=== PATIENT | male | born 2005 | race Caucasian/White ===

== ENCOUNTER 2023-09-22 13:49 | Emergency (ER) | payer OTHER, SELFPAY ==
[2023-09-22] VITALS (18 sets, daily range): BP systolic 86–104; BP diastolic 30–72; PULSE 71–100; RESP 16–21; O2SAT 93–98; BMI 22.3
--- NOTE | 2023-09-22 14:09 | ECG_ITS ---
Test Reason : MEDICATION Blood Pressure : / mmHG Vent. Rate : 076 BPM Atrial Rate : 076 BPM P-R Int : 172 ms QRS Dur : 090 ms QT Int : 366 ms P-R-T Axes : 058 073 055 degrees QTc Int : 411 ms Normal sinus rhythm Normal ECG No previous ECGs available Referred By: Kylie Parker Electronically Signed By:JAMIE HERNANDEZ MD
[2023-09-22] MEDS: OLANZapine 10 MG VIAL 5 MG IM ×2 (14:15→15:59)
[2023-09-22] MEDS: LORazepam 2 MG/ML VIAL IM ×2 (14:15→16:47)
[2023-09-22] MEDS: diphenhydrAMINE HCL 50 MG/ML VIAL IM (14:15)
--- NOTE | 2023-09-22 14:28 | PC.NURSE ---
presented from EMS for ?drug/etoh use. upon arrival, patient was agitated and combative - biting at clothing after physical restraints. order for chemical restraint, patient now appears to be resting in room with patient observer at bedside, respirations even and unlabored.
--- NOTE | 2023-09-22 14:31 | ED_ITS ---
HPI - Overdose General Chief Complaint: ETOH/Substance Use Stated Complaint: ETOH,POLICE CUSTODY Time Seen by Provider: 09/22/23 14:08 Source: EMS and police Mode of arrival: EMS History of Present Illness HPI Narrative: 18-year-old male who was [place] in from the [place] by EMS attended by police after he was found mumbling and not making any sense, suspicion for alcohol and drug use, was combative on arrival, patient provides no additional information. Related Data Allergies Allergy/AdvReac Type Severity Reaction Status Date / Time Unable to Assess Allergy Verified 09/22/23 14:09 Review of Systems 2 Review of Systems: Yes Unobtainable due to mental condition PMFSH Past Medical History Source: nursing notes reviewed Physical Exam 2 Vital Signs: Vital Signs: Last Vital Signs Pulse 91 09/22/23 16:00 Resp 17 09/22/23 16:00 BP 102/57 L 09/22/23 16:00 Pulse Ox 97 09/22/23 16:00 O2 Del Method Room Air 09/22/23 16:00 BMI result Body Mass Index 22.3 VITAL SIGNS: Reviewed. GENERAL: Well developed, well nourished, in no acute distress. HEAD: Normocephalic/atraumatic EYES: PERRLA, EOMI EARS: Ext canals without abnormality NOSE: Nares patent bilateral OROPHARYNX: no oral lesions noted, posterior pharynx clear NECK: Supple, no adenopathy LUNGS: Normal breath sounds. No adventitious sounds or accessory muscle use. SpO2<95> CARDIOVASCULAR: Regular rate and rhythm without noted murmurs ABDOMEN: Soft, non-tender, non-distended with bowel sounds. MUSCULOSKELETAL: No tenderness, deformities, or effusions noted on gross inspection. EXTREMITIES: No cyanosis, clubbing or edema. SKIN: Inspection of the skin reveals no rashes NEUROLOGIC: Alert and strength and sensation to light touch were grossly intact x 4. Medications Administered Discontinued Medications Generic Name Dose Route Start Last Admin Trade Name Freq PRN Reason Stop Dose Admin Diphenhydramine HCl 50 mg 09/22/23 14:09 09/22/23 14:15 Diphenhydramine Hcl 50 Mg/Ml Vial IM 09/22/23 14:10 50 mg ONCE ONE Administration Lorazepam 2 mg 09/22/23 14:09 09/22/23 14:15 Lorazepam 2 Mg/Ml Vial IM 09/22/23 14:10 2 mg ONCE ONE Administration Olanzapine 5 mg 09/22/23 14:09 09/22/23 14:15 Olanzapine 10 Mg Vial IM 09/22/23 14:10 5 mg ONCE ONE Administration Olanzapine 5 mg 09/22/23 15:53 09/22/23 15:59 Olanzapine 10 Mg Vial IM 09/22/23 15:54 5 mg ONCE ONE Administration Medical Decision Making Medical Decision Making [facility] Narrative: 1410: This is a 18-year-old male with history and clinical presentation suspicious for polysubstance use, on review of prior visits there is no information noted, not clear whether not patient has history of psychiatric condition. He did require immediate medication restraint and had to be kept in 4 point restraints. 1510: Patient is calm, resting. 1532: Patient is out of restraints, please see nursing documentation for exact timing of when this occurred. Reviewed all investigations and hematologic indices are grossly within normal limits and there are no noted derangements. Chemistry indices are grossly within normal limits without demonstrated ARTURO her electrolytes/liver enzyme derangements. BAL- 189. 1545: Patient had to be placed back in physical restraints. And also require an additional 5 mg of Zyprexa and 10 mg of Geodon. Signed out to ERNESTINE Reveles Differential Diagnosis Differential Diagnoses: The differential diagnosis associated with the presentation includes Please see the discussion above Admission/Observation Consideration of admission/observation: Escalation of care including admission/observation considered Please see the discussion above Lab Data [facility] Lab Attestation statement: I reviewed the patient's lab results. Please see the discussion above 09/22/23 14:50 09/22/23 14:50 Labs: Lab Results 09/22/23 Range/Units 14:50 WBC 7.0 (4.8-10.8) X10*3/uL RBC 4.83 (4.60-5.80) X10*6/uL Hgb 14.6 (14.0-18.0) g/dl Hct 42.7 (42.0-52.0) % MCV 88.4 (80.0-98.0) fL MCH 30.2 (27.0-33.0) pg MCHC 34.2 (31.0-36.0) g/dl RDW 12.3 (11.0-16.0) % Plt Count 283 (160-400) X10*3/uL MPV 8.9 L (9.4-12.4) fL Immature Gran % (Auto) 0.1 (0.0-0.4) % Neut % (Auto) 47.9 (45-73) % Lymph % (Auto) 40.7 H (20-40) % [place] % (Auto) 6.8 (2-11) % Eos % (Auto) 4.1 H (0-4) % Baso % (Auto) 0.4 (0-2) % Lymph # (Auto) 2.9 (1.2-4.9) X10*3/uL [place] # (Auto) 0.5 (0.1-1.2) X10*3/uL Eos # (Auto) 0.3 (0.0-0.4) X10*3/uL Baso # (Auto) 0.0 (0.0-0.2) X10*3/uL Abs Immat Gran (auto) 0.01 (0.00-0.03) X10*3/uL Absolute Neuts (auto) 3.4 (2.0-8.3) x10*3/uL Absolute Nucleated RBC 0.000 (0.0-0.012) X10*3/uL Nucleated RBC % (auto) 0.0 (0.0-0.2) /100WBC Sodium 143 (135-145) mmol/L Potassium 3.8 (3.3-5.1) mmol/L Chloride 109 H (96-108) mmol/L Carbon Dioxide 23 (22-29) mmol/L Anion Gap 15 (12-20) BUN 7 L (9-16) mg/dL Creatinine 0.79 (0.5-1.4) mg/dL Estim Creat Clear Calc 148.7 Estimated GFR > 60 Random Glucose 81 (60-115) mg/dL Calcium 9.5 (8.4-10.2) mg/dL Total Bilirubin 0.3 (0.0-1.0) mg/dL AST 29 (5-37) U/L ALT 9 (0-40) U/L Alkaline Phosphatase 69 (39-117) U/L Total Protein 7.1 (6.5-8.0) g/dL Albumin 4.1 (3.5-5.0) g/dL Ethyl Alcohol 189 mg/dL Independent Interpretation I performed an independent interpretation of an: EKG Interpretation: Normal sinus rhythm, HR-76, no STEMI, CO/QRS/QTC is within normal limits. Critical Care Time Critical Care Time Critical Care Time: Yes Total Critical Care Time: 45 Attestation: I personally attest to this time spent taking care of the patient. Discharge Plan Discharge Clinical Impression: Alcoholic intoxication, Polysubstance use disorder, Overdose Patient Disposition: Still a Patient
[2023-09-22 14:55] LABS: Basophils Percent Auto 0.4 % (0-2); Eosinophils Absolute Auto 0.3 X10*3/uL (0.0-0.4); Eosinophils Percent Auto 4.1 % (0-4); Hematocrit 42.7 % (42.0-52.0); Hemoglobin 14.6 g/dl (14.0-18.0); Imm Gran Abs Auto 0.01 X10*3/uL (0.00-0.03); Imm Gran Pct Auto 0.1 % (0.0-0.4); Lymphocytes Absolute Auto 2.9 X10*3/uL (1.2-4.9); Lymphocytes Percent Auto 40.7 % (20-40); MANUAL DIFF FLAG NO; Mean Corpuscular HGB Conc 34.2 g/dl (31.0-36.0); Mean Corpuscular Hemoglobin 30.2 pg (27.0-33.0); Mean Corpuscular Volume 88.4 fL (80.0-98.0); Mean Platelet Volume 8.9 fL (9.4-12.4); Monocytes Absolute Auto 0.5 X10*3/uL (0.1-1.2); Monocytes Percent Auto 6.8 % (2-11); Neutrophils Absolute Auto 3.4 x10*3/uL (2.0-8.3); Neutrophils Percent Auto 47.9 % (45-73); Platelet Count 283 X10*3/uL (160-400); Red Blood Count 4.83 X10*6/uL (4.60-5.80); Red Cell Distribution Width 12.3 % (11.0-16.0)
--- NOTE | 2023-09-22 15:00 | PC.NURSE ---
Left hand and right leg taken out of restraints, Patient woke up and readjusted himself and went back to sleep.
[2023-09-22 15:09] LABS: Ethanol 189 mg/dL
[2023-09-22 15:11] LABS: Alanine Aminotransferase 9 U/L (0-40); Albumin Level 4.1 g/dL (3.5-5.0); Alkaline Phosphatase 69 U/L (39-117); Anion Gap 15 (12-20); Aspartate Amino Transferase 29 U/L (5-37); Bilirubin Total 0.3 mg/dL (0.0-1.0); Blood Urea Nitrogen 7 mg/dL (9-16); Calcium 9.5 mg/dL (8.4-10.2); Carbon Dioxide 23 mmol/L (22-29); Chloride 109 mmol/L (96-108); Creatinine Clr Calc Pharmacy 148.7; Estimated Glomerular Filt Rate > 60; Glucose Random 81 mg/dL (60-115); Potassium 3.8 mmol/L (3.3-5.1); Sodium 143 mmol/L (135-145); Total Protein 7.1 g/dL (6.5-8.0)
--- NOTE | 2023-09-22 15:21 | PC.NURSE ---
Left leg taken out of restraint, patient remains calm.
[2023-09-22] MEDS: Ziprasidone Mesylate 20 MG VIAL 10 MG IM (16:31)
[2023-09-22] MEDS: Haloperidol Lactate 5 MG/ML VIAL IM (16:47)
--- NOTE | 2023-09-22 17:07 | PC.NURSE ---
1545 Attempted to change patient into hospital attire, patient became combative with staff at this time. Security called and patient placed into restraints. Medicated per MAR. 1615 Patient continues to thrash against restraints unable to obtain BP at this time provider aware. Medication ordered. 1630 Patient continues to be agitated and combative with staff, medicated per MAR at this time, unable to obtain vitals. 1645 Patient continues to be agitated and combative, medicated per MAR, unable to obtain vitals due to patient being combative. 1700 Patient starting to be more calm at this time.
[2023-09-22] MEDS: 0.9 % Sodium Chloride 1,000 ML 999 ML IV ×4 (17:28→19:49)
--- OUTSIDE RECORDS SUMMARY | 2023-09-22 18:02 | XMS_ITS | Continuity of Care Document ---
Author Name Unknown Organization [facility] Address [address] [place] [address]- Care Team Providers Care Resource Engineer Name Role Phone Sarmad VINSON, Elis Primary Care Physician [phone] Encounter [facility] Date(s): 04/19/20 - 05/19/20 [facility] [address] [place] [id number]- Attending Physician: Jaylon Chavez Admitting Physician: AdmtrJaylon Referring Physician: Admtr, Ar8 Allergies, Adverse Reactions, Alerts Substance Reaction Severity Status NKA Active Immunizations Given and Recorded Vaccine Date Status Refusal Reason Hepatitis A Pediatric Vaccine 1 01/30/19 Given influenza virus vaccine, inactivated 12/02/17 Give n influenza virus vaccine, inactivated 08/08/16 Give n influenza virus vaccine, inactivated 07/30/13 Give n influenza virus vaccine, inactivated 08/27/11 Give n influenza virus vaccine, inactivated 07/06/10 Give n Human Papillomavirus Vaccine 10/25/15 Given Human Papillomavirus Vaccine 2 04/15/15 Given Human Papillomavirus Vaccine 04/12/14 Given influenza virus vaccine, live 10/25/15 Given influenza virus vaccine, live 07/22/14 Given tetanus/diphtheria/pertussis, acel(Tdap) 04/12/14 Given Meningococcal Conjugate Vaccine 04/12/14 Given Varicella Virus Vaccine 01/22/08 Given Varicella Virus Vaccine 04/13/04 Given Measles/Mumps/Rubella Virus Vaccine 01/22/08 Given Measles/Mumps/Rubella Virus Vaccine 04/13/04 Given Poliovirus Vaccine, Inactivated 01/22/08 Given Poliovirus Vaccine, Inactivated 02/21/04 Given Poliovirus Vaccine, Inactivated 03 Given Poliovirus Vaccine, Inactivated 03 Given Diphth/Pertussis,Acel/Tetanus (oldterm) 01/22/08 G iven Diphth/Pertussis,Acel/Tetanus (oldterm) 07/20/04 G iven Diphth/Pertussis,Acel/Tetanus (oldterm) 03 G iven Diphth/Pertussis,Acel/Tetanus (oldterm) 03 G iven Diphth/Pertussis,Acel/Tetanus (oldterm) 03 G iven Pneumococcal Conjugate (PCV7) (oldterm) 07/20/04 G iven Pneumococcal Conjugate (PCV7) (oldterm) 03 G iven Pneumococcal Conjugate (PCV7) (oldterm) 03 G iven Pneumococcal Conjugate (PCV7) (oldterm) 03 G iven Haemophilus B Conj Vaccine (oldterm) 04/29/04 Give n Haemophilus B Conj Vaccine (oldterm) 03 Give n Haemophilus B Conj Vaccine (oldterm) 03 Give n Haemophilus B Conj Vaccine (oldterm) 03 Give n Hepatitis B Vaccine (old term) 02/21/04 Given Hepatitis B Vaccine (old term) 03 Given Hepatitis B Vaccine (old term) 03 Given Influenza Inactive (IM) (oldterm) 03 Given 1Result Comment: [facility] [place] [id number] 2Result Comment: Gardasil 9 Medications Adderall XR 30 mg oral capsule, extended release 1 capsule = 30 mg, By Mouth, Daily in AM, Dx: ADHD, # 30 capsule, 0 Refills, Maintenance, 10/27/19 13:48:00 EST, CR Capsule, [id number], 1 capsule By Mouth Daily in AM,x30 days,Instr:Dx: ADHD, 192.5, cm, 01/30/19 8:26:00 EDT, Height, 66.4, kg,... Start Date: 10/27/19 Stop Date: 11/26/19 Status: Ordered clindamycin 1% topical gel 1 application, Topically, 2 times a day, apply a thin film to affected area after washing, # 30 Gm,3 Refills, Maintenance, 04/19/20 12:00:00 EDT, Gel, [id number], 1 application Topically 2 times a day,Instr:apply a thin film to affec... Start Date: 04/19/20 Status: Ordered triamcinolone 0.1% topical ointment See Instructions, APPLY TO AFFECTED AREA TWICE A DAY FOR 14 DAYS, # 60 Gm, 2 Refills, Maintenance, 04/18/20 16:35:00 EDT, [facility] #[id number], 30, APPLY TO AFFECTED AREA TWICE A DAY FOR 14 DAYS, 192.5, cm, 01/30/19 8:26:00 EDT, Height, 66.4, k... Start Date: 04/18/20 Status: Ordered Problem List Condition Effective Dates Status Health Status Inform ant ADHD - Attention deficit dis order with hyperactivity(Confirmed) 1 Active Cognitive impairment(Confirmed) Active 1ADD, not ADHD Social History Social History Type Response Smoking Status Never smoker; Tobacc o user in household: No entered on: 12/02/17 Sex
--- OUTSIDE RECORDS SUMMARY | 2023-09-22 18:02 | XMS_ITS | Continuity of Care Document ---
Author Name Unknown Organization [facility] Address [address] [place] [address]- Care Team Providers Care Machine Repair Person Name Role Phone Sarmad VINSON, Elis Primary Care Physician [phone] Encounter [facility] Date(s): 01/10/21 - 02/09/21 [facility] [address] [place] [phone]- Allergies, Adverse Reactions, Alerts Substance Reaction Severity [...] Inactive (IM) (oldterm) 03 Given 1Result Comment: [facility] [id number] 2Result Comment: Gardasil 9 Medications Adderall XR 30 mg oral capsule, extended release 1 capsule = 30 mg, By Mouth, Daily in AM, Dx: ADHD, # 30 capsule, 0 Refills, Maintenance, 01/10/21 13:08:00 EDT, CR Capsule, [facility] #[id number], 1 capsule By Mouth Daily in AM,x30 days,Instr:Dx: ADHD, 185, cm, 06/27/20 8:22:00 EDT, Height, 80... Start Date: 01/10/21 Stop Date: 02/09/21 Status: Ordered clindamycin 1% topical gel 1 application, Topically, 2 times a day, apply a thin film to affected area after washing, # 30 Gm,3 Refills, Maintenance, 04/19/20 12:00:00 EDT, Gel, [facility] #[id number], 1 application Topically 2 times a day,Instr:apply a thin film to affec... Start Date: 04/19/20 Status: Ordered triamcinolone 0.1% topical ointment See Instructions, APPLY TO AFFECTED AREA TWICE A DAY FOR 14 DAYS, # 60 Gm, 2 Refills, Acute, [id number], 30, APPLY TO AFFECTED AREA TWICE A DAY FOR 14 DAYS, 185, cm, 04/19/20 11:07:00 EDT, Height, 80.9, kg, 04/19/20 11:07:00 EDT, Dry Weight Start Date: 06/03/20 Status: Ordered Problem List Condition Effective Dates Status Health Status Inform ant ADHD - Attention deficit dis order with hyperactivity(Confirmed) 1 Active Cognitive impairment(Confirmed) Active 1ADD, not ADHD Social History Social History Type Response Smoking Status Never smoker; Tobacc o user in household: No entered on: 12/02/17 Sex
--- OUTSIDE RECORDS SUMMARY | 2023-09-22 18:02 | XMS_ITS | Continuity of Care Document ---
Author Name Unknown Organization [facility] Address [address] [place] [address]- Care Team Providers Care Professor Of Food Biochemistry Name Role Phone Elis Bañuelos MD Primary Care Physician [phone] Encounter [facility] Date(s): 05/31/23 - 06/01/[address] [address]- Encounter Diagnosis Alcohol abuse(Final) - 06/01/23 Discharge Disposition: A-D/C Home Attending Physician: Liz Betancourt DO Admitting Physician: Liz Betancourt DO Referring Physician: Not on Staff, Referring MD Allergies, Adverse Reactions, Alerts No Known Allergies Immunizations Given and Recorded Vaccine Date Status Refusal Reason tetanus/diphtheria/pertussis, acel(Tdap) 03/22/23 Given tetanus/diphtheria/pertussis, acel(Tdap) 04/12/14 Given Hepatitis A Pediatric Vaccine 1 01/30/19 Given [...] Given influenza virus vaccine, live 07/22/14 Given Meningococcal Conjugate Vaccine 04/12/14 Given Varicella [...] Inactive (IM) (oldterm) 03 Given 1Result Comment: [facility] [id number] 2Result Comment: Gardasil 9 Medications Adderall XR 30 mg oral capsule, extended release 1 capsule = 30 mg, By Mouth, Daily in AM, Dx: ADHD, # 30 capsule, 0 Refills, Maintenance, 01/10/21 13:08:00 EDT, CR Capsule, [facility] #[id number], 1 capsule By Mouth Daily in AM,x30 days,Instr:Dx: ADHD, 185, cm, 06/27/20 8:22:00 EDT, Height, 80... Start Date: 01/10/21 Stop Date: 02/09/21 Status: Ordered clindamycin 1% topical gel 1 application, Topically, 2 times a day, apply a thin film to affected area after washing, # 30 Gm,3 Refills, Maintenance, 04/19/20 12:00:00 EDT, Gel, [facility] #[id number], 1 application Topically 2 times a day,Instr:apply a thin film to affec... Start Date: 04/19/20 Status: Ordered ondansetron 4 mg oral tablet, disintegrating 1 tablet = 4 mg, By Mouth, Every 8 hours, PRN as needed for nausea/vomiting, # 10 tablet, 0 Refills, Maintenance, 01/01/23 17:17:00 EDT, DIS Tablet, [facility] #[id number], Partial fill upon patient request if the prescription is for a schedule II opioid... Start Date: 01/01/23 Status: Ordered triamcinolone 0.1% topical ointment See Instructions, APPLY TO AFFECTED AREA TWICE A DAY FOR 14 DAYS, # 60 Gm, 2 Refills, Acute, [id number], 30, APPLY TO AFFECTED AREA TWICE A DAY FOR 14 DAYS, 185, cm, 04/19/20 11:07:00 EDT, Height, 80.9, kg, 04/19/20 11:07:00 EDT, Dry Weight Start Date: 06/03/20 Status: Ordered Problem List Condition Confirmation Course Effective Dates Status H ealth Status Informant ADHD - Attention deficit disorder with hyperactivity 1 Confirmed Active Cognitive impairment Confirmed Active 1ADD, not ADHD Results Radiology Reports * Exam Date Time Procedure Performing Provider Status 05/31/23 10:[address] Head/Brain W/O Contrast Pipo Cage; Auth (Verified) Notes: (CT Head/Brain W/O Contrast) Reason For Exam: Trauma RESULT: CT Head/Brain W/O Contrast CT Head/Brain W/O Contrast INDICATION: Hx of Present Illness: Drank 1 pint of vodka, requesting to talk to someone about detox- alert and oriented but remains to appear under the influence; Reason: Trauma; Clinical Question(s): Subarachnoid Hemorrhage; Order Comment: TECHNIQUE: Noncontrast head CT using axial technique and reconstructed in axial and coronal planes.Iterative reconstruction techniques are used to optimize dose and image quality. CTDIvol Head: 47.50 mGy, DLP Head: 773 mGy*cm. COMPARISON: 04/02/2023. FINDINGS: Agate Setter view findings, lines and tubes: None. BRAIN AND EXTRA-AXIAL SPACES: No parenchymal hemorrhage, midline shift, or mass effect. Hernandez-white matter differentiation is wellpreserved. No acute infarct. Ventricles, sulci, and basilar cisterns are normal. No white matter lesions. No subarachnoid hemorrhage. No subdural or epidural collection. CALVARIUM, SKULL BASE, AND SOFT TISSUES: No fractures or suspicious bony lesions. The paranasal sinuses and mastoid air cells are clear. Visualized orbits and globes are intact. The extracranial soft tissues are unremarkable. Small amount of cerumen in right external auditory canal. IMPRESSION: No acute intracranial pathology. WSN: [id number] Ordering Physician: Oli Albright Dictated By: Brown Yoo MD Dictated Date/Time: 05/31/23 10:58 p Reviewed By: Brown Yoo MD Signed By: Brown Yoo MD Signed Date/Time: 05/31/23 10:58 pm Transcribed By: ALBA Transcribed Date/Time: 05/31/23 10:55 pm Vital Signs Most recent to oldest [Reference Range]: 1 2 Oxygen Saturation [94-100 %] 98 % (06/01/23 1:52 AM) 98 % (05/31/23 7:51 PM) Pulse Rate [55-90 bpm] 81 bpm (06/01/23 1:52 AM) 84 bpm (05/31/23 7:51 PM) Blood Pressure [90-138/55-84 mm Hg] 105/ 80mm Hg (06/01/23 1:52 AM) 133/84mm Hg (05/31/23 7:51 PM) Respiratory Rate [16-30 br/min] 16 br/mi n (06/01/23 1:52 AM) 18 br/min (05/31/23 7:51 PM) Temperature [96.8-100.4 DegF] 98.1 DegF (05/31/23 7:51 PM) Mode of Delivery (Oxygen) Room air (06/01/23 1:52 AM) Room air (05/31/23 7:51 PM) Temperature Route Oral (05/31/23 7:51 PM) Social History Social History Type Response Smoking Status Never smoker; Tobacc o user in household: No entered on: 12/02/17 Sex Note * Liz Betancourt DO: PERFORM, SIGN, VERIFY Event Display: Patient Education Handout Authored Date: [id number] Patient Care team information Care Team Personnel Name: Lara Fu MD Position: Reference Physician Member Role: Lifetime Consulting Physician Address: Address: [address] [place] [address]- [place] Name: Elis Bañuelos MD Position: [facility] Physician - Primary Care Member Role: PCP Address: Address: [address] [place] [address] [place] [address]- [place] Name: *[facility], ED Attending Position: [facility] ED Attendings Patient Name: Connie Osborne Position: [facility] ED TA [facility] Name: Jorge Luis RN, Berto Position: [facility] ED RN W/OE and Tasks Member Role: Patient Care Provider Name: Liz Betancourt DO Position: [facility] ED Medicine MD Member Role: Admitting Physician Address: Address: [address] [place] [address]- Care Team Related Persons Name: CHASIDY GOLDEN Address: home [address] [place] [address] Name: EDDIE ROCHA Address: home [address] [place] [address]
--- OUTSIDE RECORDS SUMMARY | 2023-09-22 18:02 | XMS_ITS | Continuity of Care Document ---
Author Name Unknown Organization [facility] Address [address] [place] [id number]- Care Team Providers Care Racking Machine Operator Name Role Phone Not on Staff, PCP Primary Care Physician Unavail able Encounter [facility] Date(s): 08/07/23 - 08/07/[address] [address]- Encounter Diagnosis Knee pain(Final) - 08/07/23 Discharge Disposition: A-D/C Home Attending Physician: Dodie Basurto DO Admitting Physician: Dodie Basurto DO Referring Physician: Not on Staff, Referring [...] Inactive (IM) (oldterm) 03 Given 1Result Comment: [facility] [id number] 2Result Comment: Gardasil 9 Medications Adderall XR 30 mg oral capsule, extended release 1 capsule = 30 mg, By Mouth, Daily in AM, Dx: ADHD, # 30 capsule, 0 Refills, Maintenance, 01/10/21 13:08:00 EDT, CR Capsule, [facility] #[id number], 1 capsule By Mouth Daily in AM,x30 days,Instr:Dx: ADHD, 185, cm, 06/27/20 8:22:00 EDT, Height, 80... Start Date: 01/10/21 Stop Date: 02/09/21 Status: Ordered clindamycin 1% topical gel 1 application, Topically, 2 times a day, apply a thin film to affected area after washing, # 30 Gm,3 Refills, Maintenance, 04/19/20 12:00:00 EDT, Gel, [facility][id number], 1 application Topically 2 times a day,Instr:apply a thin film to affec... Start Date: 04/19/20 Status: Ordered ondansetron 4 mg oral tablet, disintegrating 1 tablet = 4 mg, By Mouth, Every 8 hours, PRN as needed for nausea/vomiting, # 10 tablet, 0 Refills, Maintenance, 01/01/23 17:17:00 EDT, DIS Tablet, [id number], Partial fill upon patient request if the prescription is for a schedule II opioid... Start Date: 01/01/23 Status: Ordered triamcinolone 0.1% topical ointment See Instructions, APPLY TO AFFECTED AREA TWICE A DAY FOR 14 DAYS, # 60 Gm, 2 Refills, Acute, [facility], 30, APPLY TO AFFECTED AREA TWICE A [...] Exam Date Time Procedure Performing Provider Status 08/07/23 10:08 PM Knee 1 or 2 Views Right Leah Isabel; Sloane (Verified) Notes: (Knee 1 or 2 Views Right) Reason For Exam: with Pain;Trauma RESULT: Knee 1 or 2 Views Right Knee 1 or 2 Views Right CLINICAL INDICATION: Hx of Present Illness: ETOH; Reason: Trauma; with Pain; Clinical Question(s): Fracture COMPARISONS: None TECHNIQUE: AP and lateral views of the right knee were obtained. FINDINGS: Femoral-tibial joint space and alignment are normal. No fracture or dislocation. No joint effusion. The patella is normally positioned. IMPRESSION: No fracture or dislocation. WSN: [id number] Ordering Physician: Dodie Basurto Dictated By: Terry Thomas MD Dictated Date/Time: 08/07/23 10:11 p Reviewed By: Terry Thomas MD Signed By: Terry Thomas MD Signed Date/Time: 08/07/23 10:11 pm Transcribed By: ALBA Transcribed Date/Time: 08/07/23 10:10 pm Vital Signs Most recent to oldest [Reference Range]: 1 2 Oxygen Saturation [94-100 %] 99 % (08/07/23 9:43 PM) 98 % (08/07/23 1:14 PM) Pulse Rate [55-90 bpm] 97 bpm *H* (08/07/23 9:43 PM) 95 bpm *H* (08/07/23 1:14 PM) Blood Pressure [90-138/55-84 mm Hg] 110/ 63mm Hg (08/07/23 9:43 PM) 128/67mm Hg (08/07/23 1:14 PM) Respiratory Rate [16-30 br/min] 18 br/mi n (08/07/23 9:43 PM) 18 br/min (08/07/23 1:14 PM) Temperature [96.8-100.4 DegF] 98.5 DegF (08/07/23 9:43 PM) 95 DegF *L* (08/07/23 1:14 PM) Mode of Delivery (Oxygen) Room air (08/07/23 9:43 PM) Room air (08/07/23 1:14 PM) Blood pressure sites Arm, right (08/07/23 9:43 PM) Arm, right (08/07/23 1:14 PM) Temperature Route Oral (08/07/23 9:43 PM) Social History Social History Type Response Smoking Status Never smoker; Tobacc o user in household: No entered on: 12/02/17 Sex Note * Dodie Basurto DO: PERFORM Event Display: Patient Education Leaflets Authored Date: [id number] Alcohol Intoxication ?? [id number] Alcohol Intoxication Alcohol intoxication is very serious. It occurs when you drink alcohol faster than your liver can break it down. Severe intoxication is a medical emergency. It's also called alcohol overdose or alcohol poisoning. It can lead to . Here are some bashir facts: ??? It can take 10 minutes or more??to start??to??feel the effects of a drink. So it's easy to drink more than you planned. Binge drinking can lead to an alcohol overdose. Binge drinking is having: o5 or more drinks over a short time for men o 4 or more drinks over a short time for women ??? One drink may be more than 1 serving of alcohol. In some cases, a drink can be 2 to 4 servings. This depends on the type of drink. ??? It takes about 1 hour for your body to break down 1 serving of alcohol. If you have more than 1 drink, it can take a few hours or more. ??? People with alcohol abuse disorders are more likely to get alcohol poisoning. But it can happen to anyone who drinks too much alcohol. Even a first-time drinker is at risk. ??? Many things affect how drinks will affect you. These include: o If you've eaten o How fast you drink o Your weight o How much you normally drink (or not)o Medicines you are taking o If you have a chronic disease o If you are male or female o How old you are Symptoms of alcohol intoxication Mild intoxication ??? Feel more relaxed, less tense ??? Slightly slurred speech ??? Sleepiness ??? Poor motor skills Moderate intoxication ??? Changing behavior, aggression, depression ??? Poor judgment ??? Confusion ??? Trouble focusing ??? Poor balance and coordination ??? Worsening slurred speech Severe intoxication ??? Vomiting ??? Seizures ??? Fainting or passing out (unconscious) ??? Cold, clammy skin ??? Slow or irregular breathing ??? Low body temperature (hypothermia) ??? Coma ?? Health effects Alcohol causes health problems.??This can happen after only drinking a little. There is no set number of drinks or amount of alcohol that's too much.??How much you drink at one time affects your health. And so does drinking often. Alcohol affects your whole body in these ways: ??? Brain.??Alcohol can harm parts of the brain that affect your balance, memory, thinking, and feelings. It can cause memory loss, blackouts, depression, agitation, sleep cycle changes, and seizures. These changes may or may not go away. ??? Heart and vascular system.??Alcohol can damage heart muscle. This can cause the heart muscle to weaken and stretch (cardiomyopathy). This can lead to: o Trouble breathing o Irregular heartbeat o Atrial fibrillation o Leg swelling o Heart failure Alcohol also makes the blood vessels stiffen. This causes high blood pressure. All of these problems raise your risk for heart attacks or strokes. ??? Liver.??Alcohol causes fat to build up in the liver. This affects how the liver works. And it raises the risk for hepatitis. This condition leads to belly pain, appetite loss, yellow skin and eyes (jaundice), and bleeding problems. It also leads to harmful changes in the liver. These include??liver fibrosis and cirrhosis. This can affect your ability to fight off infections. These liver changes stop it from removing toxins in your blood. This can cause a brain disease called encephalopathy. ??? Pancreas.??Alcohol can cause inflammation of the pancreas (pancreatitis). It can lead to belly pain, fever, and diabetes. ??? Immune system.??Alcohol weakens your immune system. This makes it harder to fight off infections and colds. You'll also have a higherrisk of some infections. ??? Cancer risk.??Alcohol raises your risk of some types of cancer. They include cancer of the: o Mouth o Esophagus o Pharynx o Larynx o Liver o Breast ? Sexual function.??Alcohol abuse can also lead to sexual problems. There is no safe level of alcohol use for people who are or thinking of getting . Alcohol use in may cause lifelong harm to the baby. So alcohol should be avoided. It can also cause a group of defects called alcohol spectrum disorder. These defects can include physical problems. And also behavior and learning problems. ?? Home care for alcohol intoxication Follow these tips to care for yourself at home: ??? Don't drink any more alcohol. ??? Don't drive??until all effects of the alcohol have worn off. ??? Don't use machinery that can cause injuries. ??? Get lots of rest over the next few days. ??? Drink plenty of water and other drinks that don't have alcohol. ??? Try to eat regular meals. If you have been drinking a lot every day, you may have alcohol withdrawal. Symptoms often last 3 to 4 days. They may include: ??? Nervousness ??? Shakiness ??? Nausea ??? Sweating ??? Sleeplessness They may also include severe, life-threatening symptoms. These are known as delirium tremens (DTs).DTs typically begin between 48 and 96 hours after the last drink and last 1 to 5 days. They include: ??? Seizures ??? Confusion ??? Seeing or hearing things that are not there (hallucinations) Alcohol withdrawal can cause . Call your healthcare provider before you stop drinking. This isespecially important if you've had DTs during past alcohol withdrawals. They may be able to help you with medicine. They can also refer you to an inpatient detox program. Or stay with family or friends who know when to call for medical help and can support you. If you have severe symptoms, call your provider or call 911 for help (see below). ?? Follow-up care These groups can help you and your loved one: ??? Alcoholics Anonymous (A.A.). Gives support through a self-help fellowship. ?? Find A.A. meetings near you at www.aa.org. ??? Al-Anon. ?? Gives support to families at www.al-anon.org . Or call 405-275-1095. ??? SMART Recovery ( Self- Management and Recovery Training). A nationwide abstinence-oriented support group for people with addictive issues. This free program is focused on motivation to change, urge control, and living a balanced life. For more information and meetings near you, go to www.Un-Lease.com.org/ ??? Substance Abuse and Mental Health Services Administration (SAMHSA) Treatment Steam Shovel Oiler. Free information on treatment resources in your area at https://findtreatment.gov/. Or call 067-718-4158. Call 911 Call 911 if any of these occur: ??? Trouble breathing or slow irregular breathing ??? Chest pain ??? Sudden weakness on 1 side of your body or sudden trouble speaking ??? Heavy bleeding or vomiting blood ??? Very sleepy or having trouble waking up ??? Fainting ??? Fast heart rate ??? Seizure ?? When to get medical advice Call your healthcare provider right away if any of these occur: ??? Severe shakiness? Fever of100.4??F (38??C) or higher, or as advised by your provider ??? Confusion or hallucinations ??? Painin your upper belly that gets worse ??? Repeated vomiting ?? Last Reviewed Date: 2021 ?? [id number] [employer]. All rights reserved. This information is not intended as a substitute for professional medical care. Always follow your healthcare professional's instructions. ?? * Dodie Basurto DO: PERFORM Event Display: Patient Education Leaflets Authored Date: Knee Sprain ?? [id number] Knee Sprain A sprain is an injury to the ligaments or capsule that holds a joint together. There are no broken bones. Most sprains take 3 to 6 weeks to heal. If it's a severe sprain where the ligament is completely torn, it can take months to recover. Most knee sprains are treated with a splint, knee immobilizer brace, or elastic wrap for support. Severe sprains may rarely require surgery. Home care ??? Stay off the injured leg as much as possible until you can walk on it without pain. If you have a lot of pain with walking, crutches or a walker may be prescribed. (These can be rented or purchased at many pharmacies and surgical or orthopedic supply stores). Follow your healthcare provider's advice about when to begin putting weight on that leg. ??? Keep your leg raised (elevated) to reduce pain and swelling. When sleeping, place a pillow under the injured leg. When sitting, support the injured leg so it's above heart level. This is very important during the first 48 hours. ???Apply an ice pack over the injured area for 15 to 20 minutes every??2 to 3 ??hours. You should do this for??the first??24 to 48 hours.??To make an ice pack, put ice cubes in a plastic bag that seals at the top. Wrap the bag in a thin towel. Continue to use ice packs to ease pain and swelling as needed. As the ice melts, be careful to avoid getting your wrap, splint, or cast wet. After 48 to 72 hours or as directed by your healthcare provider, apply heat??(warm shower or??warm bath)??for 15 to 20 minutes several times a day, or alternate ice and heat.??You can place the ice pack directly over the splint. If you have to wear a lagd-gvy-ucsd??knee brace, you can open it to apply the ice pack, or heat, directly to the knee. Never put ice directly on the skin. Always wrap the ice in a towel orother type of cloth. ??? You may use??ipzg-mmz-kapymhk pain medicine??to control pain, unless another pain medicine was prescribed. If you have chronic liver or kidney disease, ever had a stomach ulcer or gastrointestinal bleeding, or take a blood thinner, talk with your healthcare provider before??using these medicines. ??? If you were given a splint, keep it completely dry at all times. Bathe with your splint out of the water, protected with??2 large plastic bags, sealed with rubber bands or tape at the top end. If a fiberglass splint gets wet, you can dry it with a hairspring staker set to cool. If you have a??sjwh-afq-syfn??knee brace, you can remove this to bathe, unless told otherwise. ?? Follow-up care Follow up with your doctor, or as advised. Any X-rays you had today don???t show any broken bones, breaks, or fractures. Sometimes fractures don???t show up on the first X-ray. Bruises and sprains can sometimes hurt as much as a fracture. These injuries can take time to heal completely. If your symptoms don???t improve or they get worse, talk with your doctor. You may need a repeat X- ray.??If X-rays were taken, you will be told of any new findings that may affect your care. ?? Call 911 Call 911 if you have: ?Shortness of breath ?Chest pain ?? When to get medical advice Call your healthcare provider right away??if any of these occur: ??? The??splint??or knee immobilizer??brace??becomes wet or soft ??? The fiberglass cast or splint stays wet for more than 24 hours ??? Pain or swelling get worse ??? The injured leg??or??toes become cold, blue, numb, or tingly ?? Last Reviewed Date: 2021 ?? [id number] [employer]. All rights reserved. This information is not intended as a substitute for professional medical care. Always follow your healthcare professional's instructions. ?? Patient Care team information Care Team Personnel Name: Not on Staff, PCP Position: [facility] Physician (General Medicine) Member Role: PCP Name: Nickie VINSON, Lara Position: Reference Physician Member Role: Lifetime Consulting Physician Address: Address: [address] [place] [address]- Name: *[facility], ED Attending Position: [facility] ED Attendings Patient Name: Sb Jackelin FUENTESsea Position: [facility] ED Medicine MD Member Role: Admitting Physician Address: Address: [address] [place] [address] [place] [address]- Name: Farzana Abreu Position: [facility] [place] [facility] [place]: Sourav Casillas RN Position: [facility] ED RN W/OE and Tasks Member Role: Patient Care Provider Care Team Related Persons Name: CHASIDY GOLDEN Address: home [address] [place] [address] Name: EDDIE ROCHA Address: home [address] [place] [address]
--- OUTSIDE RECORDS SUMMARY | 2023-09-22 18:02 | XMS_ITS | Continuity of Care Document ---
Author Name Unknown Organization [facility] ter Address [address] [place] [address]- Care Team Providers Care Fourdrinier Wire Weaver Name Role Phone Not on Staff, PCP Primary Care Physician Unavail able Encounter [facility] Date(s): 04/02/23 - 04/03/[address] [address]- Encounter Diagnosis Closed head injury(Final) - 04/03/23 Discharge Disposition: A-D/C Home Attending Physician: Carson Reyes MD Admitting Physician: Carson Reyes MD Referring Physician: Not on Staff, Referring MD [...] Inactive (IM) (oldterm) 03 Given 1Result Comment: [facility] [id number] 2Result Comment: Gardasil 9 Medications Adderall XR 30 mg oral capsule, extended release 1 capsule = 30 mg, By Mouth, Daily in AM, Dx: ADHD, # 30 capsule, 0 Refills, Maintenance, 01/10/21 13:08:00 EDT, CR Capsule, [facility] #03704, 1 capsule By Mouth Daily in AM,x30 days,Instr:Dx: ADHD, 185, cm, 06/27/20 8:22:00 EDT, Height, 80... Start Date: 01/10/21 Stop Date: 02/09/21 Status: Ordered clindamycin 1% topical gel 1 application, Topically, 2 times a day, apply a thin film to affected area after washing, # 30 Gm,3 Refills, Maintenance, 04/19/20 12:00:00 EDT, [facility] #37627, 1 application Topically 2 times a day,Instr:apply a thin film to affec... Start Date: 04/19/20 Status: Ordered ondansetron 4 mg oral tablet, disintegrating 1 tablet = 4 mg, By Mouth, Every 8 hours, PRN as needed for nausea/vomiting, # 10 tablet, 0 Refills, Maintenance, 01/01/23 17:17:00 EDT, DIS Tablet, [facility] #[id number], Partial fill upon patient request if the prescription is for a schedule II opioid... Start Date: 01/01/23 Status: Ordered triamcinolone 0.1% topical ointment See Instructions, APPLY TO AFFECTED AREA TWICE A DAY FOR 14 DAYS, # 60 Gm, 2 Refills, Acute, [facility], 30, APPLY TO AFFECTED AREA TWICE A [...] Exam Date Time Procedure Performing Provider Status 04/02/23 6:[address] Head/Brain W/O Contrast Estephanie Cage ; Sloane (Verified) Notes: (CT Head/Brain W/O Contrast) Reason For Exam: Trauma RESULT: CT Head/Brain W/O Contrast CT Head/Brain W/O Contrast INDICATION: Hx of Present Illness: Pt. [facility] assisted[facility] because pt. was slumped over. Pt. has Hx of OD. Pt. denies any drug use endorses alcohol use. Endorses drinking pint of liquor. Calm and cooperative. Denies SI HI.; Reason: Trauma; Clinical Question(s): Subarachnoid Hemorrhage; Order Comment: TECHNIQUE: Noncontrast head CT using axial technique and reconstructed in axial and coronal planes.Iterative reconstruction techniques are used to optimize dose and image quality. CTDIvol Head: 45.70 mGy, DLP Head: 1933 mGy*cm. COMPARISON: None. FINDINGS: Tool Grinder Operator External view findings, lines and tubes: None. BRAIN AND EXTRA-AXIAL SPACES: Image quality degraded by patient motion artifact. No parenchymal hemorrhage, midline shift, or mass effect. Hernandez-white matter differentiation is wellpreserved. No acute infarct. Negative insular ribbon and hyperdense vessel signs. Ventricles, sulci, and basilar cisterns are normal. No white matter lesions. No subarachnoid hemorrhage. No subdural or epidural collection. CALVARIUM, SKULL BASE, AND SOFT TISSUES: No fractures or suspicious bony lesions. The paranasal sinuses and mastoid air cells are clear. Visualized orbits and globes are intact. The extracranial soft tissues are unremarkable. IMPRESSION: No acute intracranial pathology. WSN: [id number] Ordering Physician: Laurel Wiseman Dictated By: Terry Thomas MD Dictated Date/Time: 04/02/23 6:28 pm Reviewed By: Terry Thomas MD Signed By: Terry Thomas MD Signed Date/Time: 04/02/23 6:28 pm Transcribed By: ALBA Transcribed Date/Time: 04/02/23 6:17 pm Vital Signs Most recent to oldest [Reference Range]: 1 2 3 Oxygen Saturation [94-100 %] 100 % (04/03/23 10:55 AM) 97 % (04/03/23 8:01 AM) 99 % (04/02/23 5:09 PM) Pulse Rate [55-90 bpm] 74 bpm (04/03/23 10:55 AM) 73 bpm (04/03/23 8:01 AM) 61 bpm (04/02/23 5:09 PM) Blood Pressure [90-138/55-84 mm Hg] 110/63mm Hg (04/03/23 10:55 AM) 121/56mm Hg (04/03/23 8:01 AM) 107/54mm Hg (04/02/23 5:09 PM) Respiratory Rate [16-30 br/min] 18 br/min (04/03/23 10:55 AM) 18 br/min (04/03/23 8:01 AM) 14 br/min *L* (04/02/23 5:09 PM) Temperature [96.8-100.4 DegF] 97.8 DegF (04/03/23 10:55 AM) 98.6 DegF (04/03/23 8:01 AM) 98.1 DegF (04/02/23 1:37 PM) Mode of Delivery (Oxygen) Room air (04/03/23 10:55 AM) Room air (04/03/23 8:01 AM) Room air (04/02/23 5:09 PM) Blood pressure sites Arm, right (04/03/23 8:01 AM) Arm, right (04/02/23 5:09 PM) Arm, right (04/02/23 1:37 PM) Temperature Route Oral (04/03/23 10:55 AM) Oral (04/03/23 8:01 AM) Oral (04/02/23 1:37 PM) Social History Social History Type Response Smoking Status Never smoker; Tobacc o user in household: No entered on: 12/02/17 Sex Patient Care team information Care Team Personnel Name: Not on Staff, PCP Position: [facility] Physician (General Medicine) Member Role: PCP Name: Nickie VINSON, Lara Position: Reference Physician Member Role: Lifetime Consulting Physician Address: Address: [address] [place] [address]- Name: *[facility], ED Attending Position: [facility] ED Attendings Patient Name: Rachael Rosen RN Position: [facility] ED RN W/OE and Tasks Member Role: Patient Care Provider Name: Eric VINSON, Carson Zaragoza Position: [facility] Resident Member Role: Admitting Physician Address: Address: [address] [place] [address] [place] [address]- Care Team Related Persons Name: GOLDENRUIRA Address: home [address] [place] [address] Name: EDDIE ROCHA Address: home [address] [place] [address]
--- OUTSIDE RECORDS SUMMARY | 2023-09-22 18:02 | XMS_ITS | Continuity of Care Document ---
Author Name Unknown Organization [facility] Address [address] [place] [address]- Care Team Providers Care Mineral Technologist Name Role Phone Not on Staff, PCP Primary Care Physician Unavail able [facility] Date[facility]): 09/18/23 - 09/19/[address] [address]- Encounter Diagnosis Altered mental status(Final) - 09/18/23 Discharge Disposition: A-D/C Home Attending Physician: Melissa Leyva MD Admitting Physician: Melissa Leyva MD Referring Physician: Not on Staff, Referring [...] Inactive (IM) (oldterm) 03 Given 1Result Comment: [facility] [id number] 2Result Comment: Gardasil 9 Medications Adderall XR 30 mg oral capsule, extended release 1 capsule = 30 mg, By Mouth, Daily in AM, Dx: ADHD, # 30 capsule, 0 Refills, Maintenance, 01/10/21 13:08:00 EDT, CR Capsule, [facility] #[id number], 1 capsule By Mouth Daily in AM,x30 days,Instr:Dx: ADHD, 185, cm, 06/27/20 8:22:00 EDT, Height, 80... Start Date: 01/10/21 Stop Date: 02/09/21 Status: Ordered clindamycin 1% topical gel 1 application, Topically, 2 times a day, apply a thin film to affected area after washing, # 30 Gm,3 Refills, Maintenance, 04/19/20 12:00:00 EDT, Gel, [facility] #[id number], 1 application Topically 2 times a day,Instr:apply a thin film to affec... Start Date: 04/19/20 Status: Ordered ibuprofen 200 mg oral tablet 400 mg, 2, tablet, By Mouth, Every 4 hours, PRN, # 120 tablet, Refills 0, Tot. Refills 0, Acute 09/24/23 0:00:00 EST, for pain, 09/19/23 1:10:00 EST, Route to Pharmacy Electronically, [facility]/pharmacy #[id number], Partial fill upon patient request if the prescr... Start Date: 09/19/23 Stop Date: 09/24/23 Status: Ordered ondansetron 4 mg oral tablet, [...] 60 Gm, 2 Refills, Acute, [facility], 30, APPLY TO AFFECTED AREA TWICE A DAY FOR 14 DAYS, 185, cm, 04/19/20 11:07:00 EDT, Height, 80.9, kg, 04/19/20 11:07:00 EDT, Dry Weight Start Date: 06/03/20 Status: Ordered Tylenol 325 mg oral capsule 2 capsule = 650 mg, By Mouth, Every 4 hours, PRN as needed for fever, # 20 capsule, 0 Refills, Acute 09/24/23 0:00:00 EST, 09/19/23 1:10:00 EST, Capsule, [facility]/pharmacy #[id number], Partial fill upon patientrequest if the prescription is for a schedule II op... Start Date: 09/19/23 Stop Date: 09/24/23 Status: Ordered Problem List Condition Confirmation Course Effective Dates Status H ealth Status Informant ADHD - Attention deficit disorder with hyperactivity 1 Confirmed Active Cognitive impairment Confirmed Active 1ADD, not ADHD Results Radiology Reports * Exam Date Time Procedure Performing Provider Status 09/18/23 7:23 PM Elbow Min 3 Views Right Karl Villegas (Verified) Notes: (Elbow Min 3 Views Right) Reason For Exam: Pain RESULT: Elbow Min 3 Views Right Elbow Min 3 Views Right CLINICAL INDICATION: Hx of Present Illness: pt has had multiple falls with two witnessed headstrikes today, livse at homeless custodial, pt is daily drinker, pt had 7 shots today, pt is combative ems states securityy was called at custodial but pt is combative toward himself not others, pt has bump to;Reason: Pain; Clinical Question(s): Fracture COMPARISONS: None TECHNIQUE: 3 views of the right elbow were obtained. FINDINGS: No fracture or dislocation. No joint effusion. No foreign body. IMPRESSION: Negative right elbow x-ray series. WSN: [id number] Ordering Physician: Bel Ivy Dictated By: Terry Thomas MD Dictated Date/Time: 09/18/23 7:37 pm Reviewed By: Terry Thomas MD Signed By: Terry Thomas MD Signed Date/Time: 09/18/23 7:37 pm Transcribed By: ALBA Transcribed Date/Time: 09/18/23 7:36 pm * Exam Date Time Procedure Performing Provider Status 09/18/23 7:[address] Head/Brain W/O Contrast Chan Barraza (Verified) Notes: (CT Head/Brain W/O Contrast) Reason For Exam: ETOH, fall w/ head strike, altered;Behavior Problem RESULT: CT Head/Brain W/O Contrast CT Head/Brain W/O Contrast INDICATION: Hx of Present Illness: pt has had multiple falls with two witnessed headstrikes today, livse at homeless custodial, pt is daily drinker, pt had 7 shots today, pt is combative ems states y was called at custodial but pt is combative toward himself not others, pt has bump to; Reason: Behavior Problem; ETOH, fall w head strike, altered; Clinical Question(s): Hematoma; Order Comment: TECHNIQUE: Noncontrast head CT using axial technique and reconstructed in axial and coronal planes.Iterative reconstruction techniques are used to optimize dose and image quality. COMPARISON: 05/31/2023. FINDINGS: Sticker Machine Operator view findings, lines and tubes: None. BRAIN [...] unremarkable. IMPRESSION: No acute intracranial pathology. WSN: [id number] Ordering Physician: Bel Ivy Dictated By: Pedro Farley MD Dictated Date/Time: 09/18/23 7:10 pm Reviewed By: Pedro Farley MD Signed By: Pedro Farley MD Signed Date/Time: 09/18/23 7:10 pm Transcribed By: ALBA Transcribed Date/Time: 09/18/23 7:05 pm Vital Signs Most recent to oldest [Reference Range]: 1 2 3 Oxygen Saturation [94-100 %] 100 % (09/19/23 1:42 AM) 95 % (09/18/23 7:01 PM) 98 % (09/18/23 5:04 PM) Pulse Rate [55-90 bpm] 73 bpm (09/19/23 1:42 AM) 77 bpm (09/18/23 7:01 PM) 78 bpm (09/18/23 5:04 PM) Blood Pressure [90-138/55-84 mm Hg] 106/52mm Hg (09/19/23 1:42 AM) 109/50mm Hg (09/18/23 7:01 PM) 142/70mm Hg *H* (09/18/23 5:04 PM) Respiratory Rate [16-30 br/min] 18 br/min (09/19/23 1:42 AM) 16 br/min (09/18/23 7:01 PM) 18 br/min (09/18/23 5:04 PM) Temperature [96.8-100.4 DegF] 98.2 DegF (09/18/23 5:04 PM) Mode of Delivery (Oxygen) Room air (09/19/23 1:42 AM) Temperature Route Oral (09/18/23 5:04 PM) Social History Social History Type Response Smoking Status Never smoker; Tobacc o user in household: No entered on: 12/02/17 Sex Note * Bel Ivy DO: PERFORM Event Display: Patient Education Leaflets Authored Date: [id number] Alcohol Abuse ?? [id number] Alcohol Abuse Alcoholic drinks harm you when you have too many of them. No set number of drinks means too much. Drinking that affects your life or your health is called alcohol abuse. Alcohol abuse can hurt your relationships with others. You may lose friends, a spouse, or even your job. You may be abusing alcohol if any of the following are true for you: ??? Duties at home or with child and adolescent therapist suffer because of drinking. ??? Duties at work or in school suffer because of drinking. ??? You have missed work or school because of drinking. ??? You use alcohol while driving or using machinery. ??? You have legal problems such as arrests because of drinking. ??? You keep drinking even though it causes serious problems in your life. Health problems Alcohol abuse causes many health problems.??Sometimes this can happen after only drinking a ???little. ??The effects depend on how much you drink at one time and how often you drink. The effects also depend on how long you drink. For example, months, years, or decades.??Alcohol affects all parts of your body Brain Alcohol affects the central nervous system. It can damage parts of the brain that control your balance and gait, memory, thinking, and emotions. It can cause: ??? Memory loss ??? Blackouts ??? Depression ??? Agitation ??? Sleep problems ??? Seizures These changes may be long term care administrator (permanent). Heart and blood vessels Alcohol can damage heart muscle (cardiomyopathy). This can lead to: ??? Trouble breathing ??? Irregular heartbeat ??? Atrial fibrillation ??? Leg swelling ??? Heart failure Alcohol also makes the blood vessels stiff. This causes high blood pressure. All of these problems raise your risk of having a heart attack or stroke. Liver Alcohol causes fat to build up in the liver. This affects how the liver works. Alcohol also raises the risk for hepatitis. It can cause: ??? Belly (abdominal) pain ??? Belly swelling ??? Loss of appetite ??? Yellowed eyes or skin (jaundice) ??? Bleeding problems ??? Cirrhosis This can make it harder for you to fight off infections. The liver changes keep it from removing toxins in your blood that can cause brain disease (encephalopathy). This condition cause: ??? Confusion ??? Changed level of consciousness ??? Personality changes ??? Memory loss ??? Seizures, coma, and The liver changes can also cause the veins in your esophagus and stomach to become thin and swollenwith blood (varices). This can cause bleeding and vomiting of blood. Pancreas Alcohol can cause swelling (inflammation) of the pancreas (pancreatitis). This can cause belly pain, fever, and diabetes. Immune system Alcohol weakens your immune system. This makes it harder for you to fight infections and colds. It also makes it more likely for you to get pneumonia and tuberculosis. Cancer Alcohol raises the risk for several types of cancer. These include cancer of the mouth, esophagus, pharynx, larynx, liver, and breast. Sexual function Alcohol can lead to sexual problems. ?? Home care These guidelines will help you deal with alcohol abuse: ??? Admit you have a problem with alcohol. ??? Ask for help from your healthcare provider. Also ask for help from trusted family members or close friends. ??? Get help from people trained in dealing with alcohol abuse. This may be one-on-one counseling or group therapy. Or it may be an alcohol treatment program. ??? Join a self-help group for alcohol abuse such as Alcoholics Anonymous. ??? Stay away from people who abuse alcohol or tempt you to drink. ?? Follow-up care Follow up with your healthcare provider, or as advised. Contact these groups to get help: ??? Alcoholics Anonymous (AA) at www.aa.org. Or check the phone book for meetings near you. ??? National Alcohol and Substance Abuse Information Center (NASAIC) at www.addictioncareCodbod Technologies.com or 001-414-3817 ??? National [place] on Alcoholism and Drug Dependence (NCADD) at www.ncadd.org or 981-KYU-WNZC (452-256-3769) ?? Call 911 Call 911 if any of these occur: ??? Trouble breathing or slow, irregular breathing ??? Chest pain ??? Sudden weakness on one side of your body or sudden trouble speaking ??? Heavy bleeding or vomiting blood ??? Very drowsy or trouble awakening ??? Fainting or loss of consciousness ??? Rapid heart rate ??? Seizure ?? When to seek medical care Call your healthcare provider right away if any of these occur:? Confusion ??? Seeing, hearing, or feeling things that aren???t there (hallucinations) ??? Pain in your upper belly that gets worse ??? Vomiting that continues, vomiting with blood, or black or tarry stools ??? Severe shakiness ?? Last Reviewed Date: 2021 ?? [id number] [employer]. All rights reserved. This information is not intended as a substitute for professional medical care. Always follow your healthcare professional's instructions. ?? Patient Care team information Care Team Personnel Name: Not on Staff, PCP Position: [facility] Physician (General Medicine) Member Role: PCP Name: Lara Fu MD Position: Reference Physician Member Role: Lifetime Consulting Physician Address: Address: [address] [place] [address]- Name: Melissa Leyva MD Position: [facility] ED Medicine MD Member Role: Admitting Physician Address: Address: [address] [place] [id number] Name: Keiko Covington DO Position: [facility] Resident Member Role: ED Resident Address: Address: [address] [place] [address] Name: Farzana Abreu Position: [facility] ED [facility] Name: Uriah Navarrete RN Position: [facility] ED RN W/OE and Tasks Member Role: Patient Care Provider Name: Sergio Salcedo RN Position: [facility] ED RN W/OE and Tasks Member Role: Patient Care Provider Care Team Related Persons Name: CHASIDY GOLDEN Address: home [address] [place] [address] Name: EDDIE ROCHA Address: home [address] [place] [address]
--- OUTSIDE RECORDS SUMMARY | 2023-09-22 18:02 | XMS_ITS | Continuity of Care Document ---
Author Name Unknown Organization [facility] Address [address] [place] [address]- Care Team Providers Care Business Continuity Global Director Name Role Phone Sarmad VINSON, Elis Primary Care Physician [facility]): 06[facility]20 - 07/27/20 [facility] [address] [place] [address]- Attending Physician: Jaylon Chavez Admitting Physician: AdmtrJaylon [...] Inactive (IM) (oldterm) 03 Given 1Result Comment: [facility] [id number] 2Result Comment: Gardasil 9 Medications Adderall XR 30 mg oral capsule, extended release 1 capsule = 30 mg, By Mouth, Daily in AM, Dx: ADHD, # 30 capsule, 0 Refills, Maintenance, 05/25/20 15:25:00 EDT, CR Capsule, [facility] #[id number], 1 capsule By Mouth Daily in AM,x30 days,Instr:Dx: ADHD, 185, cm, 04/19/20 11:07:00 EDT, Height, 8... Start Date: 05/25/20 Stop Date: 06/24/20 Status: Ordered clindamycin 1% topical gel 1 application, Topically, 2 times a day, apply a thin film to affected area after washing, # 30 Gm,3 Refills, Maintenance, 04/19/20 12:00:00 EDT, Gel, [facility] #[id number], 1 application Topically 2 times a day,Instr:apply a thin film to affec... Start Date: 04/19/20 Status: Ordered triamcinolone 0.1% topical ointment See Instructions, APPLY TO AFFECTED AREA TWICE A DAY FOR 14 DAYS, # 60 Gm, 2 Refills, Acute, [facility], 30, APPLY TO AFFECTED AREA TWICE A [...]
--- OUTSIDE RECORDS SUMMARY | 2023-09-22 18:02 | XMS_ITS | Continuity of Care Document ---
Author Name Unknown Organization [facility] Address [address] [place] [address]- Care Team Providers Care Edge Bander Operator Name Role Phone Not on Staff, PCP Primary Care Physician Unavail able [facility] Date(s): 03/22/23 - 03/22/[address] [address]- Encounter Diagnosis Laceration of finger(Final) - 03/22/23 Discharge Disposition: A-D/C Home Attending Physician: Jaci West MD Admitting Physician: Jaci West MD Referring Physician: Not on Staff, Referring [...] 03 Given 1Result Comment: [facility] [id number] 2Result Comment: Gardasil 9 Medications Adderall XR 30 mg oral capsule, extended release 1 capsule = 30 mg, By Mouth, Daily in AM, Dx: ADHD, # 30 capsule, 0 Refills, Maintenance, 01/10/21 13:08:00 EDT, CR Capsule, [facility] #[id number], 1 capsule By Mouth Daily in AM,x30 days,Instr:Dx: ADHD, 185, cm, 06/27/20 8:22:00 EDT, Height, 80... Start Date: 01/10/21 Stop Date: 02/09/21 Status: Ordered clindamycin 1% topical gel 1 application, Topically, 2 times a day, apply a thin film to affected area after washing, # 30 Gm,3 Refills, Maintenance, 04/19/20 12:00:00 EDT, Gel, [facility] #[id number], 1 application Topically 2 times a day,Instr:apply a thin film to affec... Start Date: 04/19/20 Status: Ordered ondansetron 4 mg oral tablet, disintegrating 1 tablet = 4 mg, By Mouth, Every 8 hours, PRN as needed for nausea/vomiting, # 10 tablet, 0 Refills, Maintenance, 01/01/23 17:17:00 EDT, DIS Tablet, [facility]/pharmacy #[id number], Partial fill upon patient request if the prescription is for a schedule II opioid... Start Date: 01/01/23 Status: Ordered triamcinolone 0.1% topical ointment See Instructions, APPLY TO AFFECTED AREA TWICE A DAY FOR 14 DAYS, # 60 Gm, 2 Refills, Acute, [facility], 30, APPLY TO AFFECTED AREA TWICE A DAY FOR 14 DAYS, 185, cm, 04/19/20 11:07:00 EDT, Height, 80.9, kg, 04/19/20 11:07:00 EDT, Dry Weight Start Date: 06/03/20 Status: Ordered Problem List Condition Confirmation Course Effective Dates Status H ealth Status Informant ADHD - Attention deficit disorder with hyperactivity 1 Confirmed Active Cognitive impairment Confirmed Active 1ADD, not ADHD Vital Signs Most recent to oldest [Reference Range]: 1 2 Height 188 cm (03/22/23 5:55 PM) 188 cm (03/22/23 2:55 PM) Weight 73 kg (03/22/23 5:55 PM) Oxygen Saturation [94-100 %] 98 % (03/22/23 2:55 PM) Pulse Rate [55-90 bpm] 66 bpm (03/22/23 2:55 PM) Blood Pressure [90-138/55-84 mm Hg] 124/ 71mm Hg (03/22/23 2:55 PM) Temperature [96.8-100.4 DegF] 98.6 DegF (03/22/23 2:55 PM) Mode of Delivery (Oxygen) Room air (03/22/23 2:55 PM) Blood pressure sites Arm, left (03/22/23 2:55 PM) Temperature Route Oral (03/22/23 2:55 PM) Dry Weight 73 kg (03/22/23 5:55 PM) 73 kg (6/23/23 2:55 PM) Weight Obtained Via Patient/family state d (03/22/23 2:55 PM) Dry Weight Obtained Via Patient/family s tated (03/22/23 2:55 PM) Social History Social History Type Response Smoking Status Never smoker; Tobacc o user in household: No entered on: 12/02/17 Sex Patient Care team information Care Team Personnel Name: Not on Staff, PCP Position: [facility] Physician (General Medicine) Member Role: PCP Name: Lara Fu MD Position: Reference Physician Member Role: Lifetime Consulting Physician Address: Address: [address] [place] [address] Name: Yesi Roper RN Position: [facility] ED RN W/OE and Tasks Member Role: Patient Care Provider Name: Berto Valderrama Position: [facility] Associate Professional Member Role: ED Physician Vascular Ultrasound Technician Address: Address: [address] [place] [address] Name: Jaci West MD Position: [facility] Resident Member Role: Admitting Physician Address: Address: [address] [place] [address] Care Team Related Persons Name: CHASIDY GOLDEN Address: home [address] [place] [address] Name: EDDIE ROCHA Address: home [address] [place] [address]
--- OUTSIDE RECORDS SUMMARY | 2023-09-22 18:02 | XMS_ITS | Continuity of Care Document ---
Author Name Unknown Organization [facility] Address [address] [place] [address]- Care Team Providers Care Screwdown Operator Name Role Phone Sarmad VINSON, Elis Primary Care Physician [phone] [facility] Date(s): 05/25/20 - 06/24/20 [facility] [address] [place] [address]- Allergies, Adverse Reactions, Alerts Substance Reaction Severity [...] Inactive (IM) (oldterm) 03 Given 1Result Comment: [facility] [id number] 2Result Comment: Gardasil 9 Medications Adderall XR 30 mg oral capsule, extended release 1 capsule = 30 mg, By Mouth, Daily in AM, Dx: ADHD, # 30 capsule, 0 Refills, Maintenance, 05/25/20 15:25:00 EDT, CR Capsule, [facility] #[id number], 1 capsule By Mouth Daily in AM,x30 days,Instr:Dx: ADHD, 185, cm, 04/19/20 11:07:00 EDT, Height, 8... Start Date: 05/25/20 Stop Date: 06/24/20 Status: Ordered clindamycin 1% topical gel 1 application, Topically, 2 times a day, apply a thin film to affected area after washing, # 30 Gm,3 Refills, Maintenance, 04/19/20 12:00:00 EDT, Gel, [facility] #[id number], 1 application Topically 2 times a day,Instr:apply a thin film to affec... Start Date: 04/19/20 Status: Ordered triamcinolone 0.1% topical ointment See Instructions, APPLY TO AFFECTED AREA TWICE A DAY FOR 14 DAYS, # 60 Gm, 2 Refills, Acute, [facility], 30, APPLY TO AFFECTED AREA TWICE A [...]
--- OUTSIDE RECORDS SUMMARY | 2023-09-22 18:02 | XMS_ITS | Continuity of Care Document ---
Author Name Unknown Organization [facility] Address [address] [place] [address]- Care Team Providers Care Last Marker Name Role Phone Elis Bañuelos MD Primary Care Physician Encounter [facility] Date(s): 05/26/20 - 07/27/20 [facility] [address] [place] [address]- Attending Physician: Elis Bañuelos MD Admitting Physician: Elis Bañuelos MD Allergies, Adverse Reactions, Alerts Substance Reaction Severity [...] Inactive (IM) (oldterm) 03 Given 1Result Comment: [facility] [id number] 2Result Comment: Gardasil 9 Medications Adderall XR 30 mg oral capsule, extended release 1 capsule = 30 mg, By Mouth, Daily in AM, Dx: ADHD, # 30 capsule, 0 Refills, Maintenance, 05/25/20 15:25:00 EDT, CR Capsule, [facility] #[id number], 1 capsule By Mouth Daily in AM,x30 days,Instr:Dx: ADHD, 185, cm, 04/19/20 11:07:00 EDT, Height, 8... Start Date: 05/25/20 Stop Date: 06/24/20 Status: Ordered clindamycin 1% topical gel 1 application, Topically, 2 times a day, apply a thin film to affected area after washing, # 30 Gm,3 Refills, Maintenance, 04/19/20 12:00:00 EDT, Gel, [facility] #[id number], 1 application Topically 2 times a day,Instr:apply a thin film to affec... Start Date: 04/19/20 Status: Ordered triamcinolone 0.1% topical ointment See Instructions, APPLY TO AFFECTED AREA TWICE A DAY FOR 14 DAYS, # 60 Gm, 2 Refills, Acute, [facility], 30, APPLY TO AFFECTED AREA TWICE A DAY FOR 14 DAYS, 185, cm, 04/19/20 11:07:00 EDT, Height, 80.9, kg, 04/19/20 11:07:00 EDT, Dry Weight Start Date: 06/03/20 Status: Ordered Problem List Condition Effective Dates Status Health Status Inform ant ADHD - Attention deficit dis order with hyperactivity(Confirmed) 1 Active Cognitive impairment(Confirmed) Active 1ADD, not ADHD Vital Signs Most recent to oldest [Reference Range]: 1 Height 185 cm 1 (06/27/20 8:22 AM) Weight 80.9 kg 2 (06/27/20 8:22 AM) Body Mass Index [18.5-24.99] 23.64 (06/27/20 8:22 AM) Blood Pressure [80-130/50-80 mm Hg] 103/ 69mm Hg 3 (06/27/20 8:22 AM) 1Result Comment: 04/19/20 2Result Comment: 04/19/20 3Result Comment: copied from 01/30/19 Social History Social History Type Response Smoking Status Never smoker; Tobacc o user in household: No entered on: 12/02/17 Sex
--- OUTSIDE RECORDS SUMMARY | 2023-09-22 18:02 | XMS_ITS | Continuity of Care Document ---
Author Name Unknown Organization [facility] ter Address [address] [place] [address]- Care Team Providers Care Licensed Insurance Agent Name Role Phone Not on Staff, PCP Primary Care Physician Unavail able Encounter [facility] [place] Date(s): 01/01/23 - 01/01/[address] [address]- Discharge Disposition: A-D/C Home Attending Physician: Tremaine Lu MD Admitting Physician: Tremaine Lu MD Referring Physician: Not on Staff, Referring [...] Inactive (IM) (oldterm) 03 Given 1Result Comment: [facility] [id number] 2Result Comment: Gardasil 9 Medications Adderall XR 30 mg oral capsule, extended release 1 capsule = 30 mg, By Mouth, Daily in AM, Dx: ADHD, # 30 capsule, 0 Refills, Maintenance, 01/10/21 13:08:00 EDT, CR Capsule, [facility] #[id number], 1 capsule By Mouth Daily in AM,x30 days,Instr:Dx: ADHD, 185, cm, 06/27/20 8:22:00 EDT, Height, 80... Start Date: 01/10/21 Stop Date: 02/09/21 Status: Ordered clindamycin 1% topical gel 1 application, Topically, 2 times a day, apply a thin film to affected area after washing, # 30 Gm,3 Refills, Maintenance, 04/19/20 12:00:00 EDT, Gel, [facility] #[id number], 1 application Topically 2 times a day,Instr:apply a thin film to affec... Start Date: 04/19/20 Status: Ordered ondansetron 4 mg oral tablet, disintegrating 1 tablet = 4 mg, By Mouth, Every 8 hours, PRN as needed for nausea/vomiting, # 10 tablet, 0 Refills, Maintenance, 01/01/23 17:17:00 EDT, DIS Tablet, [facility]/pharmacy #[id number], Partial fill upon patient request if the prescription is for a schedule II opioid... Start Date: 01/01/23 Status: Ordered triamcinolone 0.1% topical ointment See Instructions, APPLY TO AFFECTED AREA TWICE A DAY FOR 14 DAYS, # 60 Gm, 2 Refills, Acute, [id number], 30, APPLY TO AFFECTED AREA TWICE A [...] to oldest [Reference Range]: 1 2 Height 186 cm (01/01/23 8:24 AM) Weight 70 kg (01/01/23 8:24 AM) 70 kg (01/01/23 8:12 AM) Oxygen Saturation [94-100 %] 99 % (01/01/23 10:54 AM) 100 % (01/01/23 8:12 AM) Pulse Rate [55-90 bpm] 76 bpm (01/01/23 10:54 AM) 86 bpm (01/01/23 8:12 AM) Blood Pressure [90-138/55-84 mm Hg] 115/ 62mm Hg (01/01/23 10:54 AM) 121/77mm Hg (01/01/23 8:12 AM) Temperature [96.8-100.4 DegF] 98.1 DegF (01/01/23 10:54 AM) 98.7 DegF (01/01/23 8:12 AM) Mode of Delivery (Oxygen) Room air (01/01/23 8:12 AM) Blood pressure sites Arm, right (01/01/23 10:54 AM) Temperature Route Oral (01/01/23 10:54 AM) Oral (01/01/23 8:12 AM) Dry Weight 70 kg (01/01/23 8:24 AM) 70 kg (01/01/23 8:12 AM) Weight Obtained Via Patient/family state d (01/01/23 8:12 AM) Height Percentile 90.21 % 1 (01/01/23 8:24 AM) Height ZScore 1.29 2 (01/01/23 8:24 AM) Weight Percentile Per Age 48.76 % 3 (01/01/23 8:24 AM) 48.76 % 4 (01/01/23 8:12 AM) Weight ZScore -0.03 5 (01/01/23 8:24 AM) -0.03 6 (01/01/23 8:12 AM) 1Result Comment: ^~:!Percentile Source -CDC/WHO 2Result Comment: ^~:!ZScore Source -CDC/WHO 3Result Comment: ^~:!Percentile Source -CDC/WHO 4Result Comment: ^~:!Percentile Source -CDC/WHO 5Result Comment: ^~:!ZScore Source -CDC/WHO 6Result Comment: ^~:!ZScore Source -CDC/WHO Social History Social History Type Response Smoking Status Never smoker; Tobacc o user in household: No entered on: 12/02/17 Sex Patient Care team information Care Team Personnel Name: Not on Staff, PCP Position: [facility] Physician (General Medicine) Member Role: PCP Name: Lara Fu MD Position: Reference Physician Member Role: Lifetime Consulting Physician Address: Address: [address] [place] [address]- Name: Tremaine Lu MD Position: [facility] ED Medicine MD Member Role: Admitting Physician Address: Address: [address] [place] [address]- Name: Oniel Cardona RN Position: [facility] ED RN W/OE and Tasks Member Role: Patient Care Provider Care Team Related Persons Name: GOLDEN CHASIDY Address: home [address] [place] [address] Name: EDDIE ROCHA Address: home [address] [place] [address]
--- OUTSIDE RECORDS SUMMARY | 2023-09-22 18:02 | XMS_ITS | Continuity of Care Document ---
Author Name Unknown Organization [facility] Address [address] [place] [address]- Care Team Providers Care Babbitter Name Role Phone Not on Staff, PCP Primary Care Physician Unavail able Encounter [facility] Date(s): 07/18/23 - 07/18/[address] [address]- Discharge Disposition: A-D/C Home Attending Physician: Pedro Zepeda MD Admitting Physician: Pedro Zepeda MD Referring Physician: Not on Staff, Referring [...] (IM) (oldterm) 03 Given 1Result Comment: [facility] [id number] 2Result Comment: Gardasil 9 Medications Adderall XR 30 mg oral capsule, extended release 1 capsule = 30 mg, By Mouth, Daily in AM, Dx: ADHD, # 30 capsule, 0 Refills, Maintenance, 01/10/21 13:08:00 EDT, CR Capsule, [facility] #[id number], 1 capsule By Mouth Daily in AM,x30 days,Instr:Dx: ADHD, 185, cm, 06/27/20 8:22:00 EDT, Height, 80... Start Date: 01/10/21 Stop Date: 02/09/21 Status: Ordered clindamycin 1% topical gel 1 application, Topically, 2 times a day, apply a thin film to affected area after washing, # 30 Gm,3 Refills, Maintenance, 04/19/20 12:00:00 EDT, Gel, [facility] #[id number], 1 application Topically 2 times a day,Instr:apply a thin film to affec... Start Date: 04/19/20 Status: Ordered ondansetron 4 mg oral tablet, disintegrating 1 tablet = 4 mg, By Mouth, Every 8 hours, PRN as needed for nausea/vomiting, # 10 tablet, 0 Refills, Maintenance, 01/01/23 17:17:00 EDT, DIS Tablet, [facility]/pharmacy #[id number], Partial fill upon patient request if the prescription is for a schedule II opioid... Start Date: 01/01/23 Status: Ordered triamcinolone 0.1% topical ointment See Instructions, APPLY TO AFFECTED AREA TWICE A DAY FOR 14 DAYS, # 60 Gm, 2 Refills, Acute, [id number], 30, APPLY TO AFFECTED AREA TWICE A [...] 1 2 3 Oxygen Saturation [94-100 %] 96 % (07/18/23 9:54 PM) 95 % (07/18/23 7:53 PM) 96 % (07/18/23 6:02 PM) Pulse Rate [55-90 bpm] 74 bpm (07/18/23 9:54 PM) 82 bpm (07/18/23 7:53 PM) 102 bpm *H* (07/18/23 6:02 PM) Blood Pressure [90-138/55-84 mm Hg] 111/81mm Hg (07/18/23 9:54 PM) 101/43mm Hg (07/18/23 7:53 PM) 113/84mm Hg (07/18/23 6:02 PM) Respiratory Rate [16-30 br/min] 16 br/min (07/18/23 9:54 PM) 16 br/min (07/18/23 7:53 PM) 16 br/min (07/18/23 6:02 PM) Temperature [96.8-100.4 DegF] 98.1 DegF (07/18/23 7:53 PM) 98.1 DegF (07/18/23 1:54 PM) Liters per Minute 3 L/min (07/18/23 4:29 PM) Mode of Delivery (Oxygen) Room air (07/18/23 9:54 PM) Room air (07/18/23 7:53 PM) Room air (07/18/23 6:02 PM) Temperature Route Axillary (07/18/23 7:53 PM) Oral (07/18/23 1:54 PM) Social History Social History Type Response Smoking Status Never smoker; Tobacc o user in household: No entered on: 12/02/17 Sex Patient Care team information Care Team Personnel Name: Not on Staff, PCP Position: [facility] Physician (General Medicine) Member Role: PCP Name: Lara Fu MD Position: Reference Physician Member Role: Lifetime Consulting Physician Address: Address: [address] [place] [address]- Name: *[facility], ED Attending Position: [facility] ED Attendings Patient Name: Oli De León Position: [facility] ED TA [facility] Member Role: Staffing Clerk Name: Jorge Luis STEPHENS, Berto Position: [facility] ED RN W/OE and Tasks Member Role: Patient Care Provider Name: Duane VINSON, Pedro Giles Position: [facility] ED Medicine MD Member Role: Admitting Physician Address: Address: [address] [place] [address]- Care Team Related Persons Name: CHASIDY GOLDEN Address: home [address] [place] [address] Name: EDDIE ROCHA Address: home [address] [place] [address]
--- OUTSIDE RECORDS SUMMARY | 2023-09-22 18:02 | XMS_ITS | Continuity of Care Document ---
Author Name Unknown Organization [facility] Address [address] [place] [address]- Care Team Providers Care Nursery Helper Name Role Phone Not on Staff, PCP Primary Care Physician Unavail able Encounter [facility] [place] Date(s): 12/31/22 - 01/01/[address] [address]- Encounter Diagnosis Alcohol intoxication(Final) - 12/31/22 Discharge Disposition: A-D/C Home Attending Physician: Michelet Bill MD Admitting Physician: Michelet Bill MD Referring Physician: Not on Staff, Referring [...] (IM) (oldterm) 03 Given 1Result Comment: [facility] [id number] 2Result Comment: Gardasil 9 Medications Adderall XR 30 mg oral capsule, extended release 1 capsule = 30 mg, By Mouth, Daily in AM, Dx: ADHD, # 30 capsule, 0 Refills, Maintenance, 01/10/21 13:08:00 EDT, CR Capsule, [facility] #[id number], 1 capsule By Mouth Daily in AM,x30 days,Instr:Dx: ADHD, 185, cm, 06/27/20 8:22:00 EDT, Height, 80... Start Date: 01/10/21 Stop Date: 02/09/21 Status: Ordered clindamycin 1% topical gel 1 application, Topically, 2 times a day, apply a thin film to affected area after washing, # 30 Gm,3 Refills, Maintenance, 04/19/20 12:00:00 EDT, Gel, [facility] #[id number], 1 application Topically 2 times a day,Instr:apply a thin film to affec... Start Date: 04/19/20 Status: Ordered ondansetron 4 mg oral tablet, disintegrating 1 tablet = 4 mg, By Mouth, Every 8 hours, PRN as needed for nausea/vomiting, # 10 tablet, 0 Refills, Maintenance, 01/01/23 17:17:00 EDT, DIS Tablet, [facility]/pharmacy #[id number], Partial fill upon patient request if the prescription is for a schedule II opioid... Start Date: 01/01/23 Status: Ordered triamcinolone 0.1% topical ointment See Instructions, APPLY TO AFFECTED AREA TWICE A DAY FOR 14 DAYS, # 60 Gm, 2 Refills, Acute, [id number], 30, APPLY TO AFFECTED AREA TWICE A [...] Range]: 1 2 Oxygen Saturation [94-100 %] 100 % (12/31/22 6:02 PM) 100 % (12/31/22 5:43 PM) Pulse Rate [55-90 bpm] 72 bpm (12/31/22 6:02 PM) 70 bpm (12/31/22 5:43 PM) Blood Pressure [90-138/55-84 mm Hg] 104/ 66mm Hg (12/31/22 6:02 PM) 104/68mm Hg (12/31/22 5:43 PM) Respiratory Rate [16-30 br/min] 18 br/mi n (12/31/22 6:02 PM) 18 br/min (12/31/22 5:43 PM) Temperature [96.8-100.4 DegF] 98.2 DegF (12/31/22 6:00 PM) Mode of Delivery (Oxygen) Room air (12/31/22 6:02 PM) Room air (12/31/22 5:43 PM) Social History Social History Type Response Smoking Status Never smoker; Tobacc o user in household: No entered on: 12/02/17 Sex EKG study * Event Display: EKG Authored Date: * Event Display: ECG 12-Lead Authored Date: Please click on pdf link to open report * Event Display: ECG 12-Lead Authored Date: Ventricular Rate: 61 BPM Atrial Rate: 61 BPM P-R Interval: 198 ms QRS Duration: 92 ms Q-T Interval: 390 ms QTC Calculation(Bazett): 392 ms P [place]: 54 degrees R [place]: 63 degrees T [place]: 57 degrees Normal sinus rhythm Normal ECG No previous ECGs available Confirmed by CORY ROME MD ([id number]) on 01/01/2023 8:38:20 AM Bond: CORY ROME MD Note * Mary Munguia DO: PERFORM Event Display: Patient Education Leaflets Authored Date: [id number] Alcohol Intoxication ?? [id number] Alcohol Intoxication Alcohol intoxication is very serious. [...] to families at www.al-anon.org . Or call 320-700-1925. ??? [employer] ( Self- Management and Recovery Training). A nationwide abstinence-oriented support group for people with addictive issues. This free program is focused on motivation to change, urge control, and living a balanced life. For more information and meetings near you, go to www.[employer].org/ ??? Substance Abuse and Mental Health Services Administration (SAMHSA) Treatment Sound Tester. Free information on treatment resources in your area at https://findtreatment.gov/. Or call 650-985-6005. Call 471 Call 500 if any of these occur: ??? Trouble [...] vomiting ?? Last Reviewed Date: 2021 ?? 1887-8066 [employer]. All rights reserved. This information is not intended as a substitute for professional medical care. Always follow your healthcare professional's instructions. ?? Patient Care team information Care Team Personnel Name: Not on Staff, PCP Position: [facility] Physician (General Medicine) Member Role: PCP Name: Lara Fu MD Position: Reference Physician Member Role: Lifetime Consulting Physician Address: Address: [address] [place] [address]- Name: Mary Munguia DO Position: [facility] Resident Member Role: ED Resident Address: Address: [address] [place] [address] [place] [address]- Name: Michelet Bill MD Position: [facility] Resident Member Role: ED Attending Physician Address: Address: [address] [place] [address] [place] [address]- [place] Name: Nela Izaguirre RN Position: [facility] ED RN W/OE and Tasks Member Role: Patient Care Provider Name: Marvin Abreu Position: [facility] ED TA [facility] Care Team Related Persons Name: RUI GOLDENRA Address: [address] [place] [address] Name: EDDIE ROCHA Address: home [address] [place] [address]
--- NOTE | 2023-09-22 18:07 | PC.NURSE ---
Patient remaining calm at this time, left arm and right leg restraints removed.
[2023-09-22 18:54] LABS: Amphetamine Screen Urine Not Detected (Not Detect); Barbiturates, Urine Not Detected (Not Detect); Benzodiazepines Screen Urine Not Detected (Not Detect); Cannabinoid Screen Urine POSITIVE (Not Detect); Cocaine Screen Urine Not Detected (Not Detect); Fentanyl, urine Not Detected (Not Detect); Opiate Screen Urine Not Detected (Not Detect); Phencyclidine Screen Urine Not Detected (Not Detect)
--- NOTE | 2023-09-22 19:49 | PC.NURSE ---
rosa isela santiago notified of low bp. new orders for ivf infusing. sitter at bedside. resp even and unlabored pt sleeping.
--- NOTE | 2023-09-22 23:53 | PC.NURSE ---
pt has been awaking throughout the evening to reposition self in bed/use urinal. pt sleeping at this time. nad. resp even and unlabored. 1:1 sitter at bedside. vss. upon awaking pt calm/cooperative.
[2023-09-23 01:50] VITALS: BP 108/53; PULSE 76; RESP 16; O2SAT 100
--- NOTE | 2023-09-23 01:52 | PC.NURSE ---
pt awake now axox4 ambulatory with steady gait to bathroom. pt does not recall events in ER however aware at [facility]. pt reports was drinking/smoked marijuana earlier denies other drug use. pt calm/cooperative at this time. vss. ciwa 4. pt denies hx withdrawal sx. requests food/drinks. 1:1 sitter at bedside.
== END 2023-09-23 02:53 | disposition home or self-care (01) ==
PROVIDERS: Emergency Provider Student in an Organized Health Care Education/Training Program
DX: F10.120 Alcohol abuse with intoxication, uncomplicated (principal); Y90.6 Blood alcohol level of 120-199 mg/100 ml; T50.901A Poisoning by unspecified drugs, medicaments and biological substances, accidental (unintentional), initial encounter; F19.90 Other psychoactive substance use, unspecified, uncomplicated; Y92.9 Unspecified place or not applicable; I95.2 Hypotension due to drugs; T42.75XA Adverse effect of unspecified antiepileptic and sedative-hypnotic drugs, initial encounter; Y92.230 Patient room in hospital as the place of occurrence of the external cause
CPT/HCPCS: 36415; 80053; 80307; 85025; 93005; 96360; 96361; 96372; 99285; J1200; J1630; J2060; J2359; J3486

== ENCOUNTER → 2023-09-22 14:09 | Outpatient (BNV) | payer OTHER, SELFPAY | PROVIDERS: Emergency Provider Student in an Organized Health Care Education/Training Program; Visit Provider Internal Medicine Cardiovascular Disease | DX: R41.82 Altered mental status, unspecified (principal) | CPT/HCPCS: 93010 ==